=== PATIENT | female | born 1940 | race Asian ===

== ENCOUNTER 2016-12-24 10:23 | Emergency (ER) | payer OTHER ==
[2016-12-24 10:37] VITALS: BP 146/55; PULSE 69; RESP 16; TEMP 98.1; O2SAT 96
--- NOTE | 2016-12-24 11:34 | DX ---
Right Knee, 3 views including a sunrise view Clinical Indications: Pain and swelling x2 days Comparison: None Findings: There is a knee joint effusion. No fracture or malalignment of the femoral tibial joint is identified. The patella is laterally subluxed in the distal femoral groove. with severe narrowing of the lateral patellofemoral joint. There is marginal osteophyte formation of the patellofemoral joint with large superior patellar spurs. There are mild spurs associated with the knee joint , consistent with osteoarthritis. The knee joint itself is normal in thickness without chondrocalcinosis, subcort ical cyst formation or erosive change. There is atherosclerotic disease of the distal superficial fem oral artery. Overall mineralization is normal. Impression: Osteoarthritis, greatest involving the patellofemoral joint.
--- NOTE | 2016-12-24 12:38 | UCPHY ---
[id number]. Time Seen by Provider: 12/24/16 11:59 HPI/ROS: CHIEF COMPLAINT: Right knee pain HISTORY OF PRESENT ILLNESS: This is a generally healthy 76-year-old female who presents with 2 days of right knee swelling. She feels as if her right knee is not stable and might not support her. She has not had any trauma. The giveaway sensation is worse when she is walking up or down stairs. She denies back, hip, or ankle pain. She has not had any knee redness or warmth. She took Tylenol yesterday. No other treatments. REVIEW OF SYSTEMS: A ten point review of systems was performed and is negative with the exception of the items mentioned in the HPI. Source: Patient Exam Limitations: No limitations - Personal History Current Tetanus Diphtheria and Acellular Pertussis (TDAP): Yes Tetanus Vaccine Date: within 10 years - Medical/Surgical History Hx Asthma: No Hx Chronic Respiratory Disease: No Hx Diabetes: No Hx Cardiac Disease: No Hx Renal Disease: No Hx Cirrhosis: No Hx Alcoholism: No Hx HIV/AIDS: No Hx Splenectomy or Spleen Trauma: No Other PMH: High cholesterol, HTN, endometriosis, osteoarthritis - Family History Significant Family History: No pertinent family hx - Social History Smoking Status: Never smoked Additional Social History: She is independent in all activities. She helps take care of her grandchildren. No tobacco use. - Physical Exam Exam: General Appearance: Alert. Vital signs reviewed. Focused examination was performed. Respiratory: Lungs are clear to auscultation; no wheezes, rales, or rhonchi. Cardiovascular: Regular rate and rhythm; no murmur, rub, or gallop. Skin: Warm and dry, no rashes on exposed skin, normal color. Back: Nontender to palpation over the thoracolumbar spine. Extremities: Right knee with swelling, no redness or warmth. No tenderness with palpation of the knee. No pain with active or passive range of motion of her right knee. Some ligamentous laxity with valgus and varus testing. Negative drawer test. Neurological: Alert and oriented. Moving all four extremities easily and equally. Sensation intact to light touch over both lower extremities. Psychiatric: Normal affect. Constitutional: Initial Vital Signs Temperature (C) 36.7 C 12/24/16 10:32 Heart Rate 69 12/24/16 10:32 Respiratory Rate 16 12/24/16 10:32 Blood Pressure 146/55 H 12/24/16 10:32 O2 Sat (%) 96 12/24/16 10:32 O2 Delivery Mode Room Air Allergies/Adverse Reactions: Penicillins Allergy (Intermediate, Verified 12/24/16 10:37) Rash Home Medications: Medication Instructions Recorded Atorvastatin Calcium 12/24/16 Fosamax 5mg 12/24/16 Lisinopril 12/24/16 Medical Decision Making - Diagnostics Imaging: X-ray of the right knee reviewed by me in PACs. It shows osteoarthritis and joint effusion fear. No fracture. ED Course/Re-evaluation: Knee x-ray shows osteoarthritis. She does have a joint effusion. She has some laxity with varus and valgus testing. She has not had trauma. A knee brace was placed and she had significant improvement in her impression of knee stability. She is advised to wear this brace on an as needed basis. I am recommending rice therapy and judicious use of ibuprofen. She will follow up with her primary care physician. Should her symptoms persist she might need orthopedic referral to assess for internal derangement of the knee. She is comfortable with this plan. Differential Diagnosis: I considered a differential diagnosis that includes but is not limited to fracture, dislocation, sprain, strain, internal derangement of the knee, and septic arthritis. Departure - Departure Disposition: Home, Routine, Self-Care Clinical Impression: Internal derangement of knee Qualifiers: Qualifier Code: (M23.91) Unspecified internal derangement of right knee Condition: Good Instructions: Knee Sprain (ED), RICE Therapy (ED) Additional Instructions: Take ibuprofen 200 mg every 6-8 hours while awake. Take this with food. Try to stay off of your right leg for the next couple of days. Elevate your right knee whenever possible. Apply ice for 20 minutes at a time 4 times daily. Wear the knee brace as needed for comfort. You do not need to wear it. Use it if it make sure knee feels stronger. Follow up with Dr. Watson. If needed, he will refer you to an orthopedist. Referrals: Jez Watson MD [Primary Care Provider] - As per Instructions - PQRS PQRS Measurement: 134: Depression screening and followup, PRIME MD-PHQ2 (12 years and older) Over the last 2 weeks, how often have you been bothered by any of the following problems? 1. Feeling down, depressed, or hopeless? 2. Little interest or pleasure in doing things? Patient answered no to both 1 and 2 130: Documentation of medications. Reviewed all patient medications, doses, route and frequency. 226: Do you smoke? No. 47: 65 and older: Advanced care planning. Patient has advanced directive. 51: 18 years old and older with diagnosis of COPD, spirometry performance. Patient has no history of COPD 52: 18 years old and older with COPD and symptoms of COPD or FEV1<60% predicted prescribed a B Agonist. Does not apply.
== END 2016-12-24 12:44 | disposition home or self-care (01) ==
LOC: CED 10:23
DX: M23.91 Unspecified internal derangement of right knee (principal)
CPT/HCPCS: 73562; G0463; L1830

== ENCOUNTER → 2017-01-30 | Outpatient (CLI) | payer OTHER | LOC: FIMAGING 12:04 | PROVIDERS: ATTEND Orthopaedic Surgery | DX: M23.241 Derangement of anterior horn of lateral meniscus due to old tear or injury, right knee (principal); M23.231 Derangement of other medial meniscus due to old tear or injury, right knee; M22.41 Chondromalacia patellae, right knee; M25.461 Effusion, right knee; M71.21 Synovial cyst of popliteal space [Baker], right knee ==

== ENCOUNTER → 2017-02-16 | Outpatient (CLI) | payer OTHER ==
--- NOTE | 2017-02-16 15:42 | CPEKG ---
Heart Rate: 73 RR Interval: 822 P-R Interval: 148 QRSD Interval: 88 QT Interval: 408 QTC Interval: 450 P [place]: 40 QRS [place]: 32 T Wave [place]: 44 EKG Severity - NORMAL ECG - EKG Impression: SINUS RHYTHM Electronically Signed By: Anival Patel 16-Feb-2017 16:26:04
== END ==
LOC: FCP 15:19
PROVIDERS: ATTEND Orthopaedic Surgery
DX: Z01.810 Encounter for preprocedural cardiovascular examination (principal)

== ENCOUNTER → 2017-03-16 | Outpatient (CLI) | payer OTHER | LOC: CIMAGING 10:16 | DX: Z12.31 Encounter for screening mammogram for malignant neoplasm of breast (principal) | CPT/HCPCS: G0202 ==

== ENCOUNTER → 2018-03-27 | Outpatient (CLI) | payer OTHER | LOC: FIMAGING 08:42 | PROVIDERS: ATTEND Internal Medicine | DX: Z12.13 Encounter for screening for malignant neoplasm of small intestine (principal); Z80.3 Family history of malignant neoplasm of breast ==

== ENCOUNTER → 2018-04-04 | Outpatient (CLI) | payer OTHER | LOC: FIMAGING 13:43 | PROVIDERS: ATTEND Internal Medicine | DX: R92.8 Other abnormal and inconclusive findings on diagnostic imaging of breast (principal) ==

== ENCOUNTER → 2018-04-06 | Outpatient (CLI) | payer OTHER | LOC: FIMAGING 09:36 | PROVIDERS: ATTEND Internal Medicine | DX: Z13.820 Encounter for screening for osteoporosis (principal); M81.0 Age-related osteoporosis without current pathological fracture; D64.9 Anemia, unspecified; E78.5 Hyperlipidemia, unspecified; I10 Essential (primary) hypertension ==

== ENCOUNTER → 2019-04-17 | Outpatient (CLI) | payer OTHER | LOC: CIMAGING 12:48 ==